=== PATIENT | female | born 1995 | race Caucasian/White ===

== ENCOUNTER 2017-11-07 23:59 | Outpatient (CLI) | payer OTHER ==
[2017-11-14 21:37] VITALS: BP 128/66
== END 2017-11-08 01:52 | disposition home or self-care (01) ==
LOC: TRG 23:59
PROVIDERS: ATTEND Obstetrics & Gynecology
DX: O62.9 Abnormality of forces of labor, unspecified (principal); Z3A.38 38 weeks gestation of pregnancy

== ENCOUNTER 2017-11-13 04:42 | Inpatient (IN) | payer OTHER ==
[2017-11-13] MEDS ORDERED: LACTATED RINGERS 1,000 ML ONE (09:27)
--- NOTE | 2017-11-13 11:33 | History and Physical Report ---
History of Present Illness Date of examination: 11/13/17 Date of admission: 11/13/17 Chief complaint: 39 weeks with contractions History of present illness: Patient is a 22 year old , LMP , EDC 11/21/17 at 39 weeks and 2 days gestation who presented to the labor floor complaining of contractions which started at about 5 AM today. She denies any fluid leakage or bleeding. She reports good movement. She is GDM and takes glyburide 2.5 mg daily. Past History Past Medical History: other (Gest diabetes) [employer] History: other (arcuate uterus) Social history: no significant social history - Obstetrical History : 1 Medications and Allergies Allergies Allergy/AdvReac Type Severity Reaction Status Date / Time No Known Allergies Allergy Verified 11/08/17 01:48 - Vital Signs Vital signs: Vital Signs Pulse BP 76 111/68 11/13/17 05:01 11/13/17 05:01 Temp Pulse Resp BP Pulse Ox 97.7 F 76 18 111/68 11/13/17 06:25 11/13/17 05:01 11/13/17 06:25 11/13/17 05:01 - Physical Exam Cardiovascular: Normal S1, Normal S2 Lungs: Positive: Clear to auscultation Vulva: both: normal Uterus: Positive: enlarged Deep Tendon Reflex Grade: Normal +2 - Obstetrical FHR: category 1 Uterine Contraction Monitor Mode: External Cervical Dilatation: 3 Cervical Effacement Percentage: 90 station: -1 Uterine Contraction Pattern: Regular Uterine Contraction Intensity: Moderate Results All other labs normal. Assessment and Plan - Patient Problems (1) 39 weeks gestation of Current Visit: Yes Status: Acute (2) Gestational diabetes Current Visit: Yes Status: Acute Plan to address problem: Glucose monitoring intrapartum. (3) Active labor Current Visit: Yes Status: Acute Plan to address problem: Admit to labor floor. Routine admitting labs. IV fluid. and toco monitoring. FS every 4 hrs intrapartum. Anticipate . (4) Arcuate uterus Current Visit: Yes Status: Acute (5) Anemia Current Visit: Yes Status: Acute Qualifiers: Anemia type: iron deficiency
[2017-11-13] MEDS: LACTATED RINGERS 1,000 ML IV SCH ×2 (12:53→20:09)
[2017-11-13 13:18] LABS: Hematocrit 37.1 % (30.3-42.9); Hemoglobin 12.4 gm/dl (10.1-14.3); Mean Corpuscular HGB Conc 33 % (30-34); Mean Corpuscular Hemoglobin 29 pg (28-32); Mean Corpuscular Volume 88 fl (79-97); Platelet Count 207 K/mm3 (140-440); Red Blood Count 4.23 M/mm3 (3.65-5.03); Red Cell Distribution Width 13.7 % (13.2-15.2); White Blood Count 11.9 K/mm3 (4.5-11.0)
[2017-11-13] MEDS ORDERED: NUBAIN IV ONE (22:25)
--- NOTE | 2017-11-13 22:29 | Progress Note ---
Assessment and Plan - Patient Problems (1) 39 weeks gestation of Current Visit: Yes Status: Acute (2) Gestational diabetes Current Visit: Yes Status: Acute Plan to address problem: Glucose monitoring intrapartum. (3) Active labor Current Visit: Yes Status: Acute Plan to address problem: and toco monitoring. FS every 4 hrs intrapartum. Anticipate . (4) Arcuate uterus Current Visit: Yes Status: Acute (5) Anemia Current Visit: Yes Status: Acute Qualifiers: Anemia type: iron deficiency Subjective - Subjective Date of service: 11/13/17 Principal diagnosis: Active labor Interval history: Patient is a 22 year old , LMP , EDC 11/21/17 at 39 weeks and 2 days gestation who presented to the labor floor complaining of contractions which started at about 5 AM today. She denies any fluid leakage or bleeding. She reports good movement. She is GDM and takes glyburide 2.5 mg daily. FHT has beeb CAT 1, contractions every 3-4 mins. Glucose has been less than 100. Objective - Vital Signs Vital Signs: Vital Signs - 12hr 11/13/17 11/13/17 11/13/17 11:49 11:54 11:59 Temperature Pulse Rate 74 68 75 Respiratory Rate Blood Pressure Blood Pressure [Left] O2 Sat by Pulse 98 98 99 Oximetry 11/13/17 11/13/17 11/13/17 12:04 12:09 12:14 Temperature Pulse Rate 72 81 71 Respiratory Rate Blood Pressure Blood Pressure [Left] O2 Sat by Pulse 98 97 97 Oximetry 11/13/17 11/13/17 11/13/17 12:19 12:24 12:29 Temperature Pulse Rate 77 79 71 Respiratory Rate Blood Pressure Blood Pressure [Left] O2 Sat by Pulse 97 96 97 Oximetry 11/13/17 11/13/17 11/13/17 12:34 12:39 12:44 Temperature Pulse Rate 79 83 91 H Respiratory Rate Blood Pressure Blood Pressure [Left] O2 Sat by Pulse 97 97 97 Oximetry 11/13/17 11/13/17 11/13/17 12:49 12:54 12:59 Temperature Pulse Rate 87 84 76 Respiratory Rate Blood Pressure Blood Pressure [Left] O2 Sat by Pulse 98 97 97 Oximetry 11/13/17 11/13/17 11/13/17 13:02 13:04 13:09 Temperature Pulse Rate 79 74 81 Respiratory Rate Blood Pressure Blood Pressure [Left] O2 Sat by Pulse 94 96 96 Oximetry 11/13/17 11/13/17 11/13/17 13:14 13:19 13:24 Temperature Pulse Rate 64 70 74 Respiratory Rate Blood Pressure Blood Pressure [Left] O2 Sat by Pulse 98 98 98 Oximetry 11/13/17 11/13/17 11/13/17 13:29 13:34 13:39 Temperature Pulse Rate 80 80 78 Respiratory Rate Blood Pressure Blood Pressure [Left] O2 Sat by Pulse 97 97 98 Oximetry 11/13/17 11/13/17 11/13/17 13:44 13:49 13:54 Temperature Pulse Rate 76 73 77 Respiratory Rate Blood Pressure Blood Pressure [Left] O2 Sat by Pulse 97 99 98 Oximetry 11/13/17 11/13/17 11/13/17 13:59 14:04 14:09 Temperature Pulse Rate 69 74 72 Respiratory Rate Blood Pressure Blood Pressure [Left] O2 Sat by Pulse 97 99 98 Oximetry 11/13/17 11/13/17 11/13/17 14:14 14:19 14:24 Temperature Pulse Rate 79 74 77 Respiratory Rate Blood Pressure Blood Pressure [Left] O2 Sat by Pulse 98 98 100 Oximetry 11/13/17 11/13/17 11/13/17 14:29 14:34 14:39 Temperature Pulse Rate 75 67 78 Respiratory Rate Blood Pressure Blood Pressure [Left] O2 Sat by Pulse 98 89 98 Oximetry 11/13/17 11/13/17 11/13/17 14:44 14:49 14:54 Temperature Pulse Rate 76 82 76 Respiratory Rate Blood Pressure Blood Pressure [Left] O2 Sat by Pulse 98 98 99 Oximetry 11/13/17 11/13/17 11/13/17 14:58 14:59 15:04 Temperature Pulse Rate 74 79 84 Respiratory Rate Blood Pressure Blood Pressure [Left] O2 Sat by Pulse 92 98 98 Oximetry 11/13/17 11/13/17 11/13/17 15:09 15:14 15:19 Temperature Pulse Rate 73 68 80 Respiratory Rate Blood Pressure Blood Pressure [Left] O2 Sat by Pulse 99 98 98 Oximetry 11/13/17 11/13/17 11/13/17 15:24 15:29 19:11 Temperature Pulse Rate 66 68 71 Respiratory Rate Blood Pressure Blood Pressure [Left] O2 Sat by Pulse 99 99 100 Oximetry 11/13/17 11/13/17 11/13/17 19:16 19:25 19:29 Temperature 97.8 F Pulse Rate 83 70 68 Respiratory 18 Rate Blood Pressure Blood Pressure 113/71 [Left] O2 Sat by Pulse 100 100 99 Oximetry 11/13/17 11/13/17 11/13/17 19:31 19:34 19:39 Temperature Pulse Rate 75 77 85 Respiratory Rate Blood Pressure 113/71 Blood Pressure [Left] O2 Sat by Pulse 99 98 Oximetry 11/13/17 11/13/17 11/13/17 19:44 19:49 19:54 Temperature Pulse Rate 76 77 80 Respiratory Rate Blood Pressure Blood Pressure [Left] O2 Sat by Pulse 98 98 98 Oximetry 11/13/17 11/13/17 11/13/17 19:59 20:04 20:09 Temperature Pulse Rate 100 H 79 76 Respiratory Rate Blood Pressure Blood Pressure [Left] O2 Sat by Pulse 98 98 98 Oximetry 11/13/17 11/13/17 11/13/17 20:14 20:19 20:24 Temperature Pulse Rate 71 79 82 Respiratory Rate Blood Pressure Blood Pressure [Left] O2 Sat by Pulse 97 98 98 Oximetry 11/13/17 11/13/17 11/13/17 20:29 20:32 20:34 Temperature Pulse Rate 82 80 79 Respiratory Rate Blood Pressure 106/60 Blood Pressure [Left] O2 Sat by Pulse 98 98 Oximetry 11/13/17 11/13/17 11/13/17 20:39 20:44 20:49 Temperature Pulse Rate 80 83 82 Respiratory Rate Blood Pressure Blood Pressure [Left] O2 Sat by Pulse 97 98 97 Oximetry 11/13/17 11/13/17 11/13/17 20:54 20:59 21:04 Temperature Pulse Rate 79 96 H 80 Respiratory Rate Blood Pressure Blood Pressure [Left] O2 Sat by Pulse 99 98 98 Oximetry 11/13/17 11/13/17 11/13/17 21:09 21:18 21:23 Temperature Pulse Rate 86 92 H 91 H Respiratory Rate Blood Pressure Blood Pressure [Left] O2 Sat by Pulse 98 99 99 Oximetry 11/13/17 11/13/17 11/13/17 21:27 21:28 21:31 Temperature Pulse Rate 74 71 68 Respiratory Rate Blood Pressure 117/75 Blood Pressure [Left] O2 Sat by Pulse 88 100 Oximetry 11/13/17 11/13/17 11/13/17 21:33 21:38 21:43 Temperature Pulse Rate 83 85 94 H Respiratory Rate Blood Pressure Blood Pressure [Left] O2 Sat by Pulse 99 99 98 Oximetry 11/13/17 11/13/17 11/13/17 21:48 21:53 21:58 Temperature Pulse Rate 79 72 73 Respiratory Rate Blood Pressure Blood Pressure [Left] O2 Sat by Pulse 98 98 98 Oximetry 11/13/17 11/13/17 11/13/17 22:03 22:08 22:13 Temperature Pulse Rate 71 86 83 Respiratory Rate Blood Pressure Blood Pressure [Left] O2 Sat by Pulse 98 98 98 Oximetry 11/13/17 11/13/17 11/13/17 22:18 22:23 22:28 Temperature Pulse Rate 80 77 85 Respiratory Rate Blood Pressure Blood Pressure [Left] O2 Sat by Pulse 98 98 99 Oximetry - Exam Cardiovascular: Normal S1, Normal S2 Lungs: Clear to auscultation Vulva: both: normal FHR: category 1 Uterine Contraction Monitor Mode: External Cervical Dilatation: 4 Cervical Effacement Percentage: 90 station: -1 Uterine Contraction Pattern: Irregular Deep Tendon Reflex Grade: Normal +2 - Labs Labs: Abnormal Labs 11/13/17 11/13/17 12:56 20:57 WBC 11.9 H POC Glucose 58 L Laboratory Results - last 24 hr 11/13/17 11/13/17 11/13/17 12:49 12:56 12:56 WBC 11.9 H RBC 4.23 Hgb 12.4 Hct 37.1 MCV 88 MCH 29 MCHC 33 RDW 13.7 Plt Count 207 POC Glucose 74 Blood Type O POSITIVE Antibody Screen Negative 11/13/17 20:57 WBC RBC Hgb Hct MCV MCH MCHC RDW Plt Count POC Glucose 58 L Blood Type Antibody Screen
--- NOTE | 2017-11-14 05:43 | Progress Note ---
Assessment and Plan - Patient Problems (1) 39 weeks gestation of Current Visit: Yes Status: Acute (2) Gestational diabetes Current Visit: Yes Status: Acute Plan to address problem: Glucose monitoring intrapartum. (3) Active labor Current Visit: Yes Status: Acute Plan to address problem: and toco monitoring. FS every 4 hrs intrapartum. Anticipate . (4) Arcuate uterus Current Visit: Yes Status: Acute (5) Anemia Current Visit: Yes Status: Acute Qualifiers: Anemia type: iron deficiency Subjective - Subjective Date of service: 11/14/17 Principal diagnosis: Active labor Interval history: Patient is a 22 year old , LMP , EDC 11/21/17 at 39 weeks and 3 days gestation who presented to the labor floor complaining of contractions which started at about 5 AM yesterday. She denies any fluid leakage or bleeding. She reports good movement. She is GDM and takes glyburide 2.5 mg daily. FHT has been CAT 1, contractions every 3-4 mins. Glucose is 82 now. Exam: cervix: 4 cm/90-100%/-1. Objective - Vital Signs Vital Signs: Vital Signs - 12hr 11/13/17 11/13/17 11/13/17 19:11 19:16 19:25 Temperature 97.8 F Pulse Rate 71 83 70 Respiratory 18 Rate Blood Pressure Blood Pressure 113/71 [Left] O2 Sat by Pulse 100 100 100 Oximetry 11/13/17 11/13/17 11/13/17 19:29 19:31 19:34 Temperature Pulse Rate 68 75 77 Respiratory Rate Blood Pressure 113/71 Blood Pressure [Left] O2 Sat by Pulse 99 99 Oximetry 11/13/17 11/13/17 11/13/17 19:39 19:44 19:49 Temperature Pulse Rate 85 76 77 Respiratory Rate Blood Pressure Blood Pressure [Left] O2 Sat by Pulse 98 98 98 Oximetry 11/13/17 11/13/17 11/13/17 19:54 19:59 20:04 Temperature Pulse Rate 80 100 H 79 Respiratory Rate Blood Pressure Blood Pressure [Left] O2 Sat by Pulse 98 98 98 Oximetry 11/13/17 11/13/17 11/13/17 20:09 20:14 20:19 Temperature Pulse Rate 76 71 79 Respiratory Rate Blood Pressure Blood Pressure [Left] O2 Sat by Pulse 98 97 98 Oximetry 11/13/17 11/13/17 11/13/17 20:24 20:29 20:32 Temperature Pulse Rate 82 82 80 Respiratory Rate Blood Pressure 106/60 Blood Pressure [Left] O2 Sat by Pulse 98 98 Oximetry 11/13/17 11/13/17 11/13/17 20:34 20:39 20:44 Temperature Pulse Rate 79 80 83 Respiratory Rate Blood Pressure Blood Pressure [Left] O2 Sat by Pulse 98 97 98 Oximetry 11/13/17 11/13/17 11/13/17 20:49 20:54 20:59 Temperature Pulse Rate 82 79 96 H Respiratory Rate Blood Pressure Blood Pressure [Left] O2 Sat by Pulse 97 99 98 Oximetry 11/13/17 11/13/17 11/13/17 21:04 21:09 21:18 Temperature Pulse Rate 80 86 92 H Respiratory Rate Blood Pressure Blood Pressure [Left] O2 Sat by Pulse 98 98 99 Oximetry 11/13/17 11/13/17 11/13/17 21:23 21:27 21:28 Temperature Pulse Rate 91 H 74 71 Respiratory Rate Blood Pressure Blood Pressure [Left] O2 Sat by Pulse 99 88 100 Oximetry 11/13/17 11/13/17 11/13/17 21:31 21:33 21:38 Temperature Pulse Rate 68 83 85 Respiratory Rate Blood Pressure 117/75 Blood Pressure [Left] O2 Sat by Pulse 99 99 Oximetry 11/13/17 11/13/17 11/13/17 21:43 21:48 21:53 Temperature Pulse Rate 94 H 79 72 Respiratory Rate Blood Pressure Blood Pressure [Left] O2 Sat by Pulse 98 98 98 Oximetry 11/13/17 11/13/17 11/13/17 21:58 22:03 22:08 Temperature Pulse Rate 73 71 86 Respiratory Rate Blood Pressure Blood Pressure [Left] O2 Sat by Pulse 98 98 98 Oximetry 11/13/17 11/13/17 11/13/17 22:13 22:18 22:23 Temperature Pulse Rate 83 80 77 Respiratory Rate Blood Pressure Blood Pressure [Left] O2 Sat by Pulse 98 98 98 Oximetry 11/13/17 11/13/17 11/13/17 22:28 22:31 22:33 Temperature Pulse Rate 85 79 76 Respiratory Rate Blood Pressure 114/72 Blood Pressure [Left] O2 Sat by Pulse 99 99 Oximetry 11/13/17 11/13/1717 22:38 22:43 22:48 Temperature Pulse Rate 83 73 78 Respiratory Rate Blood Pressure Blood Pressure [Left] O2 Sat by Pulse 98 99 98 Oximetry 11/13/17 11/13/17 11/13/17 22:53 22:58 23:03 Temperature Pulse Rate 76 90 83 Respiratory Rate Blood Pressure Blood Pressure [Left] O2 Sat by Pulse 99 98 98 Oximetry 11/13/17 11/13/17 11/13/17 23:08 23:13 23:18 Temperature Pulse Rate 78 81 79 Respiratory Rate Blood Pressure Blood Pressure [Left] O2 Sat by Pulse 98 97 96 Oximetry 11/13/17 11/13/17 11/13/17 23:23 23:28 23:31 Temperature Pulse Rate 87 86 78 Respiratory Rate Blood Pressure 108/63 Blood Pressure [Left] O2 Sat by Pulse 97 97 Oximetry 11/13/17 11/13/17 11/13/17 23:33 23:38 23:43 Temperature Pulse Rate 75 88 86 Respiratory Rate Blood Pressure Blood Pressure [Left] O2 Sat by Pulse 98 97 96 Oximetry 11/13/17 11/13/17 11/13/17 23:48 23:53 23:58 Temperature Pulse Rate 87 87 79 Respiratory Rate Blood Pressure Blood Pressure [Left] O2 Sat by Pulse 97 97 97 Oximetry 11/14/17 11/14/17 11/14/17 00:03 00:08 00:13 Temperature Pulse Rate 84 81 85 Respiratory Rate Blood Pressure Blood Pressure [Left] O2 Sat by Pulse 97 98 97 Oximetry 11/14/17 11/14/17 11/14/17 00:18 00:23 00:28 Temperature Pulse Rate 80 80 80 Respiratory Rate Blood Pressure Blood Pressure [Left] O2 Sat by Pulse 97 97 97 Oximetry 11/14/17 11/14/17 11/14/17 00:32 00:33 00:38 Temperature Pulse Rate 81 88 79 Respiratory Rate Blood Pressure 115/65 Blood Pressure [Left] O2 Sat by Pulse 97 99 Oximetry 11/14/17 11/14/17 11/14/17 00:43 00:48 00:53 Temperature Pulse Rate 90 83 80 Respiratory Rate Blood Pressure Blood Pressure [Left] O2 Sat by Pulse 98 98 97 Oximetry 11/14/17 11/14/17 11/14/17 00:58 01:03 01:08 Temperature Pulse Rate 87 82 84 Respiratory Rate Blood Pressure Blood Pressure [Left] O2 Sat by Pulse 98 98 98 Oximetry 11/14/17 11/14/17 11/14/17 01:13 01:18 01:23 Temperature Pulse Rate 82 78 86 Respiratory Rate Blood Pressure Blood Pressure [Left] O2 Sat by Pulse 97 97 97 Oximetry 11/14/17 11/14/17 11/14/17 01:28 01:31 01:33 Temperature Pulse Rate 89 73 85 Respiratory Rate Blood Pressure 117/66 Blood Pressure [Left] O2 Sat by Pulse 97 98 Oximetry 11/14/17 11/14/17 11/14/17 01:38 01:43 01:48 Temperature Pulse Rate 80 89 76 Respiratory Rate Blood Pressure Blood Pressure [Left] O2 Sat by Pulse 97 96 98 Oximetry 11/14/17 11/14/17 11/14/17 01:53 01:58 02:03 Temperature Pulse Rate 95 H 81 84 Respiratory Rate Blood Pressure Blood Pressure [Left] O2 Sat by Pulse 98 98 97 Oximetry 11/14/17 11/14/17 11/14/17 02:08 02:13 02:18 Temperature Pulse Rate 90 90 88 Respiratory Rate Blood Pressure Blood Pressure [Left] O2 Sat by Pulse 98 97 98 Oximetry 11/14/17 11/14/17 11/14/17 02:23 02:28 02:31 Temperature Pulse Rate 84 85 87 Respiratory Rate Blood Pressure 118/61 Blood Pressure [Left] O2 Sat by Pulse 98 98 Oximetry 11/14/17 11/14/17 11/14/17 02:33 02:38 02:43 Temperature Pulse Rate 83 83 85 Respiratory Rate Blood Pressure Blood Pressure [Left] O2 Sat by Pulse 97 97 96 Oximetry 11/14/17 11/14/17 11/14/17 02:48 02:53 02:58 Temperature Pulse Rate 89 98 H 106 H Respiratory Rate Blood Pressure Blood Pressure [Left] O2 Sat by Pulse 98 98 97 Oximetry 11/14/17 11/14/17 11/14/17 03:03 03:08 03:13 Temperature Pulse Rate 89 82 80 Respiratory Rate Blood Pressure Blood Pressure [Left] O2 Sat by Pulse 97 97 98 Oximetry 11/14/17 11/14/17 11/14/17 03:18 03:23 03:28 Temperature Pulse Rate 82 82 69 Respiratory Rate Blood Pressure Blood Pressure [Left] O2 Sat by Pulse 97 98 99 Oximetry 11/14/17 11/14/17 11/14/17 03:31 03:33 03:38 Temperature Pulse Rate 72 81 96 H Respiratory Rate Blood Pressure 110/67 Blood Pressure [Left] O2 Sat by Pulse 98 98 Oximetry 11/14/17 11/14/17 11/14/17 03:43 03:48 03:53 Temperature Pulse Rate 72 86 100 H Respiratory Rate Blood Pressure Blood Pressure [Left] O2 Sat by Pulse 98 98 98 Oximetry 11/14/17 11/14/17 11/14/17 03:58 04:03 04:08 Temperature Pulse Rate 91 H 91 H 80 Respiratory Rate Blood Pressure Blood Pressure [Left] O2 Sat by Pulse 99 100 99 Oximetry 11/14/17 11/14/17 11/14/17 04:13 04:18 04:23 Temperature Pulse Rate 74 80 84 Respiratory Rate Blood Pressure Blood Pressure [Left] O2 Sat by Pulse 100 98 98 Oximetry 11/14/17 11/14/17 11/14/17 04:28 04:33 04:38 Temperature Pulse Rate 75 89 92 H Respiratory Rate Blood Pressure 110/58 Blood Pressure [Left] O2 Sat by Pulse 98 98 97 Oximetry 11/14/17 11/14/17 11/14/17 04:43 04:48 04:53 Temperature Pulse Rate 74 70 65 Respiratory Rate Blood Pressure Blood Pressure [Left] O2 Sat by Pulse 99 98 97 Oximetry 11/14/17 11/14/17 11/14/17 05:04 05:09 05:14 Temperature Pulse Rate 76 70 69 Respiratory Rate Blood Pressure Blood Pressure [Left] O2 Sat by Pulse 96 95 97 Oximetry 11/14/17 11/14/17 11/14/17 05:19 05:24 05:29 Temperature Pulse Rate 67 75 70 Respiratory Rate Blood Pressure Blood Pressure [Left] O2 Sat by Pulse 97 98 97 Oximetry 11/14/17 11/14/17 11/14/17 05:32 05:34 05:39 Temperature Pulse Rate 62 65 66 Respiratory Rate Blood Pressure 104/61 Blood Pressure [Left] O2 Sat by Pulse 97 98 Oximetry - Exam Cardiovascular: Normal S1, Normal S2 Lungs: Clear to auscultation Vulva: both: normal FHR: category 1 Uterine Contraction Monitor Mode: External Cervical Dilatation: 4 Cervical Effacement Percentage: 90 station: -1 Uterine Contraction Pattern: Irregular Deep Tendon Reflex Grade: Normal +2 - Labs Labs: Abnormal Labs 11/13/17 11/13/17 12:56 20:57 WBC 11.9 H POC Glucose 58 L Laboratory Results - last 24 hr 11/13/17 11/13/17 11/13/17 12:49 12:56 12:56 WBC 11.9 H RBC 4.23 Hgb 12.4 Hct 37.1 MCV 88 MCH 29 MCHC 33 RDW 13.7 Plt Count 207 POC Glucose 74 Blood Type O POSITIVE Antibody Screen Negative 11/13/17 11/13/17 11/14/17 20:57 23:30 05:08 WBC RBC Hgb Hct MCV MCH MCHC RDW Plt Count POC Glucose 58 L 96 82 Blood Type Antibody Screen
[2017-11-14] MEDS: STADOL IV PRN ×2 (05:51→09:48)
--- NOTE | 2017-11-14 09:38 | Event Note ---
Date: 11/14/17 S: Feeling a few contractions O: /-1, Arom clear fluid, CAT I tracing, BS WNL A: Active labor P : Epidural Expect
[2017-11-14] MEDS ORDERED: ePHEDrine SULFATE ONE (10:07)
[2017-11-14] MEDS: LACTATED RINGERS 1,000 ML IV SCH ×3 (10:14→19:22)
--- NOTE | 2017-11-14 10:49 | Anesthesia Consultation ---
Anesthesia Consult and Med Hx Date of service: 11/14/17 - Airway Anesthetic Teeth Evaluation: Good ROM Head & Neck: Adequate Mental/Hyoid Distance: Adequate Mallampati Class: Class II Intubation Access Assessment: Probably Good - Pre-Operative Health Status ASA Pre-Surgery Classification: ASA2 Proposed Anesthetic Plan: Epidural, Spinal - Pulmonary Hx Asthma: No - Cardiovascular System Hx Hypertension: No - Central Nervous System Hx Seizures: No Hx Psychiatric Problems: No - Endocrine Hx Renal Disease: No Hx Hypothyroidism: No Hx Hyperthyroidism: No - Hematic Hx Anemia: No Hx Sickle Cell Disease: No - Other Systems Hx Alcohol Use: No
[2017-11-14] MEDS ORDERED: NARCAN 2 MG/2 ML IV PRN (11:30)
[2017-11-14] MEDS ORDERED: ePHEDrine SULFATE IV PRN (11:30)
[2017-11-14] MEDS: fentaNYL-BUPIV 2 MCG/ML-0.125% 200 MCG/100 ML BAG EPIDURAL SCH ×2 (11:31→18:59)
[2017-11-14] MEDS ORDERED: Fluarix Quad 2017-2018(36 MOS+ IM ONE (12:00)
--- NOTE | 2017-11-14 14:01 | Progress Note ---
Assessment and Plan A: 22yo G 1 P 0 0 0 0 @ 39 weeks 2 days Active Labor GDM GBS negative P: Continue routine labor orders Continue accuchecks q4hrs intrapartum Start oxytocin for labor augmentation Anticipate vaginal delivery Subjective - Subjective Date of service: 11/14/17 Principal diagnosis: Active labor Patient reports: movement normal, no contractions (epidural in place) Objective - Vital Signs Vital Signs: Vital Signs - 12hr 11/14/17 11/14/17 11/14/17 01:58 02:03 02:08 Temperature Pulse Rate 81 84 90 Respiratory Rate Blood Pressure Blood Pressure [Left] O2 Sat by Pulse 98 97 98 Oximetry 11/14/17 11/14/17 11/14/17 02:13 02:18 02:23 Temperature Pulse Rate 90 88 84 Respiratory Rate Blood Pressure Blood Pressure [Left] O2 Sat by Pulse 97 98 98 Oximetry 11/14/17 11/14/17 11/14/17 02:28 02:31 02:33 Temperature Pulse Rate 85 87 83 Respiratory Rate Blood Pressure 118/61 Blood Pressure [Left] O2 Sat by Pulse 98 97 Oximetry 11/14/17 11/14/17 11/14/17 02:38 02:43 02:48 Temperature Pulse Rate 83 85 89 Respiratory Rate Blood Pressure Blood Pressure [Left] O2 Sat by Pulse 97 96 98 Oximetry 11/14/17 11/14/17 11/14/17 02:53 02:58 03:03 Temperature Pulse Rate 98 H 106 H 89 Respiratory Rate Blood Pressure Blood Pressure [Left] O2 Sat by Pulse 98 97 97 Oximetry 11/14/17 11/14/17 11/14/17 03:08 03:13 03:18 Temperature Pulse Rate 82 80 82 Respiratory Rate Blood Pressure Blood Pressure [Left] O2 Sat by Pulse 97 98 97 Oximetry 11/14/17 11/14/17 11/14/17 03:23 03:28 03:31 Temperature Pulse Rate 82 69 72 Respiratory Rate Blood Pressure 110/67 Blood Pressure [Left] O2 Sat by Pulse 98 99 Oximetry 11/14/17 11/14/17 11/14/17 03:33 03:38 03:43 Temperature Pulse Rate 81 96 H 72 Respiratory Rate Blood Pressure Blood Pressure [Left] O2 Sat by Pulse 98 98 98 Oximetry 11/14/17 11/14/17 11/14/17 03:48 03:53 03:58 Temperature Pulse Rate 86 100 H 91 H Respiratory Rate Blood Pressure Blood Pressure [Left] O2 Sat by Pulse 98 98 99 Oximetry 11/14/17 11/14/17 11/14/17 04:03 04:08 04:13 Temperature Pulse Rate 91 H 80 74 Respiratory Rate Blood Pressure Blood Pressure [Left] O2 Sat by Pulse 100 99 100 Oximetry 11/14/17 11/14/17 11/14/17 04:18 04:23 04:28 Temperature Pulse Rate 80 84 75 Respiratory Rate Blood Pressure Blood Pressure [Left] O2 Sat by Pulse 98 98 98 Oximetry 11/14/17 11/14/17 11/14/17 04:33 04:38 04:43 Temperature Pulse Rate 89 92 H 74 Respiratory Rate Blood Pressure 110/58 Blood Pressure [Left] O2 Sat by Pulse 98 97 99 Oximetry 11/14/17 11/14/17 11/14/17 04:48 04:53 05:04 Temperature Pulse Rate 70 65 76 Respiratory Rate Blood Pressure Blood Pressure [Left] O2 Sat by Pulse 98 97 96 Oximetry 11/14/17 11/14/17 11/14/17 05:09 05:14 05:19 Temperature Pulse Rate 70 69 67 Respiratory Rate Blood Pressure Blood Pressure [Left] O2 Sat by Pulse 95 97 97 Oximetry 11/14/17 11/14/17 11/14/17 05:24 05:29 05:32 Temperature Pulse Rate 75 70 62 Respiratory Rate Blood Pressure 104/61 Blood Pressure [Left] O2 Sat by Pulse 98 97 Oximetry 11/14/17 11/14/17 11/14/17 05:34 05:39 05:44 Temperature Pulse Rate 65 66 68 Respiratory Rate Blood Pressure Blood Pressure [Left] O2 Sat by Pulse 97 98 98 Oximetry 11/14/17 11/14/17 11/14/17 05:49 05:51 05:53 Temperature Pulse Rate 68 79 Respiratory 18 Rate Blood Pressure Blood Pressure [Left] O2 Sat by Pulse 97 94 Oximetry 11/14/17 11/14/17 11/14/17 05:54 05:59 06:04 Temperature Pulse Rate 80 82 79 Respiratory Rate Blood Pressure Blood Pressure [Left] O2 Sat by Pulse 95 95 96 Oximetry 11/14/17 11/14/17 11/14/17 06:09 06:14 06:19 Temperature Pulse Rate 82 88 94 H Respiratory Rate Blood Pressure Blood Pressure [Left] O2 Sat by Pulse 95 96 96 Oximetry 11/14/17 11/14/17 11/14/17 06:22 06:25 06:29 Temperature Pulse Rate 82 95 H 96 H Respiratory Rate Blood Pressure Blood Pressure [Left] O2 Sat by Pulse 94 96 96 Oximetry 11/14/17 11/14/17 11/14/17 06:32 06:34 06:39 Temperature Pulse Rate 78 91 H 90 Respiratory Rate Blood Pressure 110/62 Blood Pressure [Left] O2 Sat by Pulse 94 96 96 Oximetry 11/14/17 11/14/17 11/14/17 06:44 06:49 06:50 Temperature Pulse Rate 80 81 79 Respiratory Rate Blood Pressure Blood Pressure [Left] O2 Sat by Pulse 95 94 95 Oximetry 11/14/17 11/14/17 11/14/17 06:55 07:00 07:05 Temperature Pulse Rate 76 87 104 H Respiratory Rate Blood Pressure Blood Pressure [Left] O2 Sat by Pulse 94 97 97 Oximetry 11/14/17 11/14/17 11/14/17 07:08 07:09 07:13 Temperature Pulse Rate 79 84 81 Respiratory Rate Blood Pressure Blood Pressure [Left] O2 Sat by Pulse 94 97 94 Oximetry 11/14/17 11/14/17 11/14/17 07:14 07:20 07:25 Temperature Pulse Rate 72 82 77 Respiratory Rate Blood Pressure Blood Pressure [Left] O2 Sat by Pulse 97 97 97 Oximetry 11/14/17 11/14/17 11/14/17 07:28 07:30 07:32 Temperature 97.3 F L Pulse Rate 73 74 74 Respiratory 18 Rate Blood Pressure 101/59 Blood Pressure 101/59 [Left] O2 Sat by Pulse 98 97 Oximetry 11/14/17 11/14/17 11/14/17 07:35 07:39 07:45 Temperature Pulse Rate 75 82 73 Respiratory Rate Blood Pressure Blood Pressure [Left] O2 Sat by Pulse 97 98 99 Oximetry 11/14/17 11/14/17 11/14/17 07:50 07:55 08:00 Temperature Pulse Rate 67 73 79 Respiratory Rate Blood Pressure Blood Pressure [Left] O2 Sat by Pulse 99 98 98 Oximetry 11/14/17 11/14/17 11/14/17 08:05 08:10 08:14 Temperature Pulse Rate 73 75 75 Respiratory Rate Blood Pressure Blood Pressure [Left] O2 Sat by Pulse 97 97 97 Oximetry 11/14/17 11/14/17 11/14/17 08:20 08:24 08:30 Temperature Pulse Rate 84 80 84 Respiratory Rate Blood Pressure Blood Pressure [Left] O2 Sat by Pulse 97 98 97 Oximetry 11/14/17 11/14/17 11/14/17 08:32 08:35 08:39 Temperature Pulse Rate 69 81 97 H Respiratory Rate Blood Pressure 108/66 Blood Pressure [Left] O2 Sat by Pulse 98 98 Oximetry 11/14/17 11/14/17 11/14/17 08:45 08:50 08:55 Temperature Pulse Rate 77 78 87 Respiratory Rate Blood Pressure Blood Pressure [Left] O2 Sat by Pulse 99 97 97 Oximetry 11/14/17 11/14/17 11/14/17 09:00 09:05 09:06 Temperature Pulse Rate 71 73 92 H Respiratory Rate Blood Pressure Blood Pressure [Left] O2 Sat by Pulse 97 99 93 Oximetry 11/14/17 11/14/17 11/14/17 09:10 09:15 09:20 Temperature Pulse Rate 98 H 90 81 Respiratory Rate Blood Pressure Blood Pressure [Left] O2 Sat by Pulse 99 98 98 Oximetry 11/14/17 11/14/17 11/14/17 09:25 09:30 09:46 Temperature Pulse Rate 82 91 H 71 Respiratory Rate Blood Pressure Blood Pressure [Left] O2 Sat by Pulse 98 98 100 Oximetry 11/14/17 11/14/17 11/14/17 09:48 09:52 09:57 Temperature Pulse Rate 72 75 Respiratory 18 Rate Blood Pressure Blood Pressure [Left] O2 Sat by Pulse 100 98 Oximetry 11/14/17 11/14/17 11/14/17 10:02 10:06 10:11 Temperature Pulse Rate 78 93 H 83 Respiratory Rate Blood Pressure Blood Pressure [Left] O2 Sat by Pulse 98 97 98 Oximetry 11/14/17 11/14/17 11/14/17 10:16 10:22 10:27 Temperature Pulse Rate 85 71 97 H Respiratory Rate Blood Pressure Blood Pressure [Left] O2 Sat by Pulse 98 96 98 Oximetry 11/14/17 11/14/17 11/14/17 10:31 10:35 10:37 Temperature Pulse Rate 74 75 71 Respiratory Rate Blood Pressure 127/74 Blood Pressure [Left] O2 Sat by Pulse 97 91 97 Oximetry 11/14/17 11/14/17 11/14/17 10:41 10:46 10:49 Temperature Pulse Rate 89 77 89 Respiratory Rate Blood Pressure Blood Pressure [Left] O2 Sat by Pulse 95 98 93 Oximetry 11/14/17 11/14/17 11/14/17 10:56 10:57 10:59 Temperature 97.6 F Pulse Rate 94 H 84 Respiratory 18 Rate Blood Pressure 135/77 Blood Pressure 135/77 [Left] O2 Sat by Pulse 92 99 99 Oximetry 11/14/17 11/14/17 11/14/17 11:02 11:05 11:07 Temperature Pulse Rate 98 H 85 90 Respiratory Rate Blood Pressure 125/65 Blood Pressure [Left] O2 Sat by Pulse 98 81 L 100 Oximetry 11/14/17 11/14/17 11/14/17 11:09 11:11 11:12 Temperature Pulse Rate 71 74 82 Respiratory Rate Blood Pressure 116/64 128/74 Blood Pressure [Left] O2 Sat by Pulse 100 Oximetry 11/14/17 11/14/17 11/14/17 11:13 11:15 11:17 Temperature Pulse Rate 78 70 90 Respiratory Rate Blood Pressure 125/73 130/82 127/68 Blood Pressure [Left] O2 Sat by Pulse 100 Oximetry 11/14/17 11/14/17 11/14/17 11:19 11:21 11:22 Temperature Pulse Rate 74 83 71 Respiratory Rate Blood Pressure 123/66 127/69 Blood Pressure [Left] O2 Sat by Pulse 99 Oximetry 11/14/17 11/14/17 11/14/17 11:23 11:27 11:32 Temperature Pulse Rate 75 69 74 Respiratory Rate Blood Pressure 124/68 Blood Pressure [Left] O2 Sat by Pulse 99 99 Oximetry 11/14/17 11/14/17 11/14/17 11:34 11:37 11:39 Temperature Pulse Rate 67 67 77 Respiratory Rate Blood Pressure 124/68 129/68 Blood Pressure [Left] O2 Sat by Pulse 100 Oximetry 11/14/17 11/14/17 11/14/17 11:42 11:45 11:47 Temperature Pulse Rate 82 69 73 Respiratory Rate Blood Pressure 110/53 Blood Pressure [Left] O2 Sat by Pulse 98 99 Oximetry 11/14/17 11/14/17 11/14/17 11:49 11:52 11:54 Temperature Pulse Rate 81 80 81 Respiratory Rate Blood Pressure 120/69 117/71 Blood Pressure [Left] O2 Sat by Pulse 99 Oximetry 11/14/17 11/14/17 11/14/17 11:57 11:59 12:02 Temperature Pulse Rate 82 85 90 Respiratory Rate Blood Pressure 126/72 Blood Pressure [Left] O2 Sat by Pulse 100 100 Oximetry 11/14/17 11/14/17 11/14/17 12:05 12:07 12:09 Temperature Pulse Rate 82 84 81 Respiratory Rate Blood Pressure 125/73 118/69 Blood Pressure [Left] O2 Sat by Pulse 100 Oximetry 11/14/17 11/14/17 11/14/17 12:10 12:12 12:15 Temperature Pulse Rate 100 H 94 H 84 Respiratory Rate Blood Pressure 123/75 Blood Pressure [Left] O2 Sat by Pulse 89 100 Oximetry 11/14/17 11/14/17 11/14/17 12:16 12:20 12:22 Temperature Pulse Rate 91 H 84 84 Respiratory Rate Blood Pressure 118/69 Blood Pressure [Left] O2 Sat by Pulse 100 100 Oximetry 11/14/17 11/14/17 11/14/17 12:25 12:27 12:29 Temperature Pulse Rate 83 84 92 H Respiratory Rate Blood Pressure 121/74 117/71 Blood Pressure [Left] O2 Sat by Pulse 100 Oximetry 11/14/17 11/14/17 11/14/17 12:31 12:34 12:37 Temperature Pulse Rate 89 84 93 H Respiratory Rate Blood Pressure 120/75 Blood Pressure [Left] O2 Sat by Pulse 99 100 Oximetry 11/14/17 11/14/17 11/14/17 12:39 12:42 12:44 Temperature Pulse Rate 94 H 88 88 Respiratory Rate Blood Pressure 125/75 117/70 Blood Pressure [Left] O2 Sat by Pulse 100 Oximetry 11/14/17 11/14/17 12:47 12:50 Temperature Pulse Rate 90 87 Respiratory Rate Blood Pressure 125/76 Blood Pressure [Left] O2 Sat by Pulse 100 Oximetry - Exam Cardiovascular: Regular rate, Normal S1, Normal S2 Lungs: Clear to auscultation Abdomen: Present: normal appearance, soft Vulva: both: normal FHR: category 1 FHR comments: baseline 135, moderate variability, +accels, no decels Uterine Contraction Monitor Mode: External Cervical Dilatation: 7 Cervical Effacement Percentage: 100 station: -2 Uterine Contraction Frequency (min): 2-5 Uterine Contraction Pattern: Regular Extremities: normal - Labs Labs: Abnormal Labs 11/13/17 11/13/17 12:56 20:57 WBC 11.9 H POC Glucose 58 L Laboratory Results - last 24 hr 11/13/17 11/13/17 11/13/17 12:56 12:56 20:57 POC Glucose 58 L RPR Nonreactive Blood Type O POSITIVE Antibody Screen Negative 11/13/17 11/14/17 11/14/17 23:30 05:08 09:23 POC Glucose 96 82 79 RPR Blood Type Antibody Screen 11/14/17 13:12 POC Glucose 76 RPR Blood Type Antibody Screen
[2017-11-14] MEDS: PITOCin/NS 30 UNIT/500ML 30 UNITS/500 ML BAG IV SCH ×2 (15:10→16:05)
[2017-11-14] MEDS ORDERED: PITOCin/NS 20 UNIT/1000ML DRIP 20,000 MILLIUNITS/1,000 ML BAG IV ONE (18:58)
--- NOTE | 2017-11-14 20:53 | Event Note ---
Date: 11/14/17 Patient with temp at 100.6 and tachycardia in the 180's. A: Chorioamnionitis. P: -Will start IV antibiotics now. -Continue pushing, anticipate
[2017-11-14] MEDS ORDERED: MINERAL OIL ONE (20:57)
[2017-11-14] MEDS ORDERED: POLYCILLIN/NS 2 GM/100 ML 2 GM/100 ML BAG IV SCH (21:00)
[2017-11-14] MEDS ORDERED: GARAMYCIN 300 MG in NACL 0.9% 100 ML IV SCH (21:00)
[2017-11-14] MEDS ORDERED: METHERGINE IM ONE (21:21)
--- NOTE | 2017-11-14 21:35 | Procedure Note ---
OB Delivery Note - Delivery Date of Delivery: 11/14/17 Surgeon: TREV CALDERON Estimated blood loss: 300cc - Vaginal Delivery presentation: vertex Delivery position: OA Intrapartum events: febrile- temp >100.3, extend. tachycardia, shoulder dystocia (relieved with suprapubic pressure, Jim positioning and rotational maneuver) Delivery augmentation: pitocin Delivery monitor: external FHT, external uterine Route of delivery: vacuum extraction Indicators for instrumentation: nonreassuring FHR tracing (prolonged sustained tachycardia and arrest of descent) Delivery placenta: spontaneous Delivery cord: 3 umbilical vessels Episiotomy: none Delivery laceration: 2nd degree, vaginal side wall (left vaginal sidewall) Delivery repair: vicryl Anesthesia: epidural Delivery comments: Vacuum-assisted vaginal delivery after sustained tachycardia, maternal exhaustion and arrest of descent. Shoulder dystocia encountered during delivery. delivered with use of Jim positioning, suprapubic pressure and rotational maneuvers. NICU present in the room, total duration of shoulder dystocia for ~ 1:30 min. - A at 1 minute: 8 at 5 minutes: 9 Gender: Female (time of delivery was 21:12, weight 7 lbs. 15 oz. or 3612 g)
[2017-11-14] MEDS ORDERED: MINERAL OIL PO PRN (21:37)
[2017-11-14] MEDS ORDERED: TUCKS PAD TP PRN (21:38)
[2017-11-14] MEDS ORDERED: DERMOPLAST TP PRN (21:38)
[2017-11-14] MEDS ORDERED: NORCO 5/325 PO PRN (21:38)
[2017-11-14] MEDS ORDERED: TYLENOL PO PRN (21:38)
[2017-11-14] MEDS ORDERED: DULCOLAX PR PRN (21:38)
[2017-11-14] MEDS ORDERED: LANSINOH TP PRN (21:38)
[2017-11-14] MEDS ORDERED: PHENERGAN PR PRN (21:38)
[2017-11-14] MEDS ORDERED: ZOFRAN IV PRN (21:38)
[2017-11-14] MEDS ORDERED: BENADRYL PO PRN (21:38)
[2017-11-14] MEDS ORDERED: MILK OF MAGNESIA PO PRN (21:38)
[2017-11-14] MEDS ORDERED: PHENERGAN PO PRN (21:38)
[2017-11-14] MEDS ORDERED: METHERGINE IM PRN (21:38)
[2017-11-14] MEDS ORDERED: D50W (25GM) Syringe IV PRN (21:40)
--- NOTE | 2017-11-14 21:42 | Event Note ---
Date: 11/14/17 S: Pt in semi-mitchell's position and pushing in progress with RN at bedside. O: SVE 10/100/-1 FHR baseline 180, minimal variability, no accels, variable decels Oxygen via NR mask @ 10 L/min Ctxs q2-3 mins Temp 99.5, 100.1, 100.6 Maternal HR 103, 107 500ml LR fluid bolus given Pitocin @ 4 mu/min Blood glucose 96 A: 22yo @ 39w2d Category II FHR Chorioamnionitis GDM P: Dr. Cherry notified of maternal fever and tachycardia and requested bedside evaluation. Verbal order given to start patient on Ampicillin and Gentamycin.
[2017-11-14] MEDS ORDERED: PITOCin/NS 20 UNIT/1000ML DRIP 20 UNITS/1,000 ML BAG IV SCH ×2 (22:00)
[2017-11-14] MEDS ORDERED: SODIUM CHLORIDE FLUSH SYRINGE 10 ML IV NR (22:00)
[2017-11-15] MEDS: FEOSOL PO SCH ×3 (00:18→22:55)
[2017-11-15] MEDS: COLACE PO SCH ×3 (00:18→22:55)
[2017-11-15] MEDS: SENOKOT S PO SCH ×2 (00:19→22:54)
[2017-11-15] MEDS: MOTRIN PO SCH ×4 (00:19→18:19)
[2017-11-15] MEDS: POLYCILLIN/NS 2 GM/100 ML 2 GM/100 ML BAG IV SCH ×3 (05:52→18:18)
[2017-11-15] MEDS ORDERED: BOOSTRIX IM ONE (06:00)
[2017-11-15] MEDS ORDERED: M-M-R II VACCINE SUB-Q ONE (06:00)
[2017-11-15] MEDS ORDERED: NACL 0.9% 1000 ML 1,000 ML IV SCH (06:00)
--- NOTE | 2017-11-15 09:16 | Progress Note ---
Assessment and Plan A: PPD #1 -stable P: Plan discharge for tomorrow Subjective - Subjective Date of service: 11/15/17 Principal diagnosis: S/P Patient reports: appetite normal [place]: doing well Objective - Vital Signs Latest vital signs: Vital Signs Temp Pulse Resp BP BP Pulse Ox 11/15/17 04:20 98.2 F 76 20 98/52 11/14/17 23:30 98.2 F 72 18 121/74 11/14/17 22:52 82 98 11/14/17 22:47 72 97 11/14/17 22:46 99.1 F 75 18 120/70 97 11/14/17 22:44 18 11/14/17 22:42 72 96 11/14/17 22:40 75 120/70 11/14/17 22:37 79 96 11/14/17 22:32 88 96 11/14/17 22:27 91 H 95 11/14/17 22:25 89 143/79 90 11/14/17 22:22 84 96 11/14/17 22:20 100.1 F H 82 18 144/79 97 11/14/17 22:17 80 96 11/14/17 22:12 85 96 11/14/17 22:10 86 144/79 11/14/17 22:07 91 H 96 11/14/17 22:02 109 H 95 11/14/17 22:01 86 94 11/14/17 21:57 89 97 11/14/17 21:55 95 H 140/73 94 11/14/17 21:52 92 H 97 11/14/17 21:47 80 L 11/14/17 20:40 100.6 F H 11/14/17 20:00 100.1 F H 107 H 18 119/76 99 11/14/17 19:22 99.5 F 103 H 18 132/77 99 11/14/17 17:51 100.2 F H 111 H 18 129/77 98 11/14/17 16:10 99.2 F 108 H 18 105/55 99 11/14/17 12:50 87 125/76 11/14/17 12:47 90 100 11/14/17 12:44 88 117/70 11/14/17 12:42 88 100 11/14/17 12:39 94 H 125/75 12/18/17 12:37 93 H 100 18/17 12:34 84 120/75 18/17 12:31 89 99 18/17 12:29 92 H 117/71 18/17 12:27 84 100 18/17 12:25 83 121/74 18/17 12:22 84 100 18/17 12:20 84 118/69 18/17 12:16 91 H 100 18/17 12:15 84 123/75 18/17 12:12 94 H 100 18/17 12:10 100 H 89 18/17 12:09 81 118/69 18/17 12:07 84 100 18/17 12:05 82 125/73 11/14/17 12:02 90 100 18/17 11:59 85 126/72 18/17 11:57 82 100 18/17 11:54 81 117/71 18/17 11:52 80 99 18/17 11:49 81 120/69 18/17 11:47 73 99 18/17 11:45 69 110/53 18/17 11:42 82 98 18/17 11:39 77 129/68 18/17 11:37 67 100 18/17 11:34 67 124/68 18/17 11:32 74 99 18/17 11:27 69 99 18/17 11:23 75 124/68 18/17 11:22 71 99 18/17 11:21 83 127/69 18/17 11:19 74 123/66 1218/17 11:17 90 127/68 100 18/17 11:15 70 130/82 1218/17 11:13 78 125/73 18/17 11:12 82 100 18/17 11:11 74 128/74 18/17 11:09 71 116/64 18/17 11:07 90 125/65 100 18/17 11:05 85 81 L 18/17 11:02 98 H 98 18/17 10:59 97.6 F 84 18 135/77 99 18/17 10:57 94 H 135/77 99 12/18/17 10:56 92 11/14/17 10:49 89 93 11/14/17 10:46 77 98 11/14/17 10:41 89 95 11/14/17 10:37 71 97 11/14/17 10:35 75 91 11/14/17 10:31 74 127/74 97 11/14/17 10:27 97 H 98 11/14/17 10:22 71 96 11/14/17 10:16 85 98 11/14/17 10:11 83 98 11/14/17 10:06 93 H 97 11/14/17 10:02 78 98 11/14/17 09:57 75 98 11/14/17 09:52 72 100 11/14/17 09:48 18 11/14/17 09:46 71 100 11/14/17 09:30 91 H 98 11/14/17 09:25 82 98 11/14/17 09:20 81 98 Intake and Output 11/14/17 11/15/17 11/15/17 22:59 06:59 14:59 Intake Total 1000.917 Output Total 800 500 Balance 200.917 -500 Intake: IV 1000.917 Lactated Ringers 1,000 ml 1000 @ 125 mls/hr IV DIRECT [facility] Rx#:[id number] PITOCin/NS 30 UNIT/500ML 0.917 30 units In 500 ml @ 1 MILLIUNITS/MIN 1 mls/hr IV TITR [facility] Rx#:[id number] Output: Urine 800 500 Void 800 500 Other: Total, Output Amount 800 500 Estimated Blood Loss 300 - Exam Breasts: Present: deferred, mass Lungs: Present: Clear to auscultation Abdomen: Present: soft Vulva: both: normal Uterus: Present: fundal height below umbilicus Extremities: Present: normal Deep Tendon Reflex Grade: Normal +2 - Labs Labs: Abnormal lab results 11/14/17 11/15/17 11/15/17 Range/Units 17:49 00:29 08:39 POC Glucose 66 L 134 H 150 H (70-105)
[2017-11-15 10:05] LABS: Hematocrit 34.8 % (30.3-42.9); Hemoglobin 11.8 gm/dl (10.1-14.3)
[2017-11-15] MEDS: PRENATAL VITAMIN PO SCH (12:01)
[2017-11-15] MEDS ORDERED: GARAMYCIN 300 MG in NACL 0.9% 100 ML IV SCH (22:00)
[2017-11-16] MEDS: MOTRIN PO SCH ×2 (00:27→06:18)
[2017-11-16] MEDS: POLYCILLIN/NS 2 GM/100 ML 2 GM/100 ML BAG IV SCH ×3 (00:29→06:47)
--- NOTE | 2017-11-16 10:44 | Progress Note ---
Assessment and Plan A: PP Day #2 Stable GDM A2 P: Follow Routine Orders Continue Diabetic Diet, Accuchecks, and Glyburide D/C home today RTO in 2 Weeks Subjective - Subjective Date of service: 11/16/17 Principal diagnosis: S/P Patient reports: appetite normal, voiding normally, pain well controlled, flatus , ambulating normally : doing well Objective - Vital Signs Latest vital signs: Vital Signs Temp Pulse Resp BP BP Pulse Ox 11/16/17 09:10 97.7 F 74 20 113/65 11/16/17 02:02 97.6 F 60 18 100/64 97 11/15/17 16:32 97.5 F L 70 18 104/62 11/15/17 12:00 97.7 F 69 18 107/50 Intake and Output 11/15/17 11/16/17 11/16/17 22:59 06:59 14:59 Intake Total 580 100 360 Balance 580 100 360 Intake: IV 100 100 POLYCILLIN/NS 2 GM/100 ML 100 100 2 gm In 100 ml @ 100 mls /hr IV Q6HR [facility] Rx#: [id number] Oral 480 360 Other: Total, Intake Amount 480 360 # Voids Void 1 1 - Exam Breasts: Present: normal Cardiovascular: Present: Regular rate Lungs: Present: Clear to auscultation Abdomen: Present: normal appearance, soft, normal bowel sounds Uterus: Present: normal, firm, fundal height below umbilicus Extremities: Present: normal - Labs Labs: Abnormal lab results 11/15/17 Range/Units 11:53 POC Glucose 142 H (70-105)
--- NOTE | 2017-11-16 10:45 | Discharge Summary ---
Providers - Providers Date of Admission: 11/13/17 04:43 Date of discharge: 11/16/17 Attending physician: PEREZ ALVAREZ MD Primary care physician: PEREZ ALVAREZ MD Hospitalization Reason for admission: active labor Delivery: Episiotomy: none Laceration: 2nd degree Other procedures: none complications: none Discharge diagnosis: IUP at term delivered [place] baby: female Condition at discharge: Good Disposition: DC-01 TO HOME OR SELFCARE Plan - Discharge Medications Prescriptions: HYDROcodone/APAP 5-325 [Braymer 5/325] 1 each PO Q6HR PRN #7 tablet PRN Reason: Pain Ibuprofen [Motrin 600 MG tab] 600 mg PO Q8H PRN #30 tablet PRN Reason: Pain Multivitamin with Iron [Multivitamins with Iron] 1 each PO DAILY #30 tablet - Provider Discharge Summary Activity: routine, no sex for 6 weeks, no heavy lifting 4 weeks, no strenuous exercise Diet: routine Instructions: routine Additional instructions: [] Smoking cessation referral if applicable(refer to patient education folder for contact #) [] Refer to [facility]'s [facility] Booklet Call your doctor immediately for: * Fever > 100.5 * Heavy vaginal bleeding ( >1 pad per hour) * Severe persistent headache * Shortness of breath * Reddened, hot, painful area to leg or breast * Drainage or odor from incision. * Keep incision clean and dry at all times and follow doctor's instructions regarding bathing/showering - Follow up plan Follow up: PEREZ ALVAREZ MD [Primary Care Provider] - 14 Days
[2017-11-16] MEDS: FEOSOL PO SCH ×2 (11:42→21:30)
[2017-11-16] MEDS: COLACE PO SCH ×2 (11:42→21:30)
[2017-11-16] MEDS: PRENATAL VITAMIN PO SCH (11:42)
[2017-11-16] MEDS: SENOKOT S PO SCH (22:35)
[2017-11-17] MEDS: MOTRIN PO SCH ×2 (00:15→05:59)
[2017-11-17] MEDS: COLACE PO SCH (10:22)
[2017-11-17] MEDS: FEOSOL PO SCH (10:22)
[2017-11-17] MEDS: PRENATAL VITAMIN PO SCH (10:22)
[2017-11-17] MEDS ORDERED: Fluarix Quad 2017-2018(36 MOS+ IM ONE (13:30)
[2017-11-17 14:41] VITALS: BP 118/98
== END 2017-11-17 15:00 | disposition home or self-care (01) | DRG 775 ==
LOC: TRG 04:42 → LD 04:43 → TRG 04:46 → OB 11-14 23:48
PROVIDERS: ADMIT Obstetrics & Gynecology; ATTEND Obstetrics & Gynecology
PROC: 10D07Z6 Extraction of Products of Conception, Vacuum, Via Natural or Artificial Opening (ICD-10-PCS; principal; 2017-11-14)
PROC: 0KQM0ZZ Repair Perineum Muscle, Open Approach (ICD-10-PCS; 2017-11-14)
PROC: 3E0234Z Introduction of Serum, Toxoid and Vaccine into Muscle, Percutaneous Approach (ICD-10-PCS; 2017-11-14)
PROC: 3E0R3BZ Introduction of Anesthetic Agent into Spinal Canal, Percutaneous Approach (ICD-10-PCS; 2017-11-14)
PROC: 00HU33Z Insertion of Infusion Device into Spinal Canal, Percutaneous Approach (ICD-10-PCS; 2017-11-14)
DX: O24.425 Gestational diabetes mellitus in childbirth, controlled by oral hypoglycemic drugs (principal); O41.1230 Chorioamnionitis, third trimester, not applicable or unspecified; O71.4 Obstetric high vaginal laceration alone; O99.02 Anemia complicating childbirth; D64.9 Anemia, unspecified; O99.89 Other specified diseases and conditions complicating pregnancy, childbirth and the puerperium; O66.0 Obstructed labor due to shoulder dystocia; O76 Abnormality in fetal heart rate and rhythm complicating labor and delivery; Z3A.39 39 weeks gestation of pregnancy; Z37.0 Single live birth; Z23 Encounter for immunization; Q51.810 Arcuate uterus; Z79.84 Long term (current) use of oral hypoglycemic drugs
CPT/HCPCS: 36415; 82962; 85014; 85018; 85027; 86592; 86850; 86900; 86901; 90471; 90686; 90715; 99211; G0008; G0463; J0290; J0595; J1580; J2210; J2300; J2590; J7030; J7120

== ENCOUNTER 2019-07-06 09:39 | Emergency (ER) | payer SELFPAY ==
--- NOTE | 2019-07-06 11:24 | Emergency Department Report ---
HPI - General Chief Complaint: Sore Throat Time Seen by Provider: 07/06/19 11:07 - HPI HPI: 24-year-old female presents to the emergency department with complaint of a two-week history of intermittent subjective fever, body aches, sore throat and productive cough with yellow sputum. The patient is currently about 3 months . She follows up with the [facility]. She has been taking some Tylenol for her symptoms with only transient relief. The cough is also intermittent but she says that she will have coughing fits when it does occur. No drooling. She is able to swallow both liquids and solids. She does not have a primary care physician. She last took Tylenol this morning at about 4 AM. This patient does not speak French well but Padmini was at bedside due to translation for both the history and physical, as well as disposition. ED Past Medical Hx - Past Medical History Previous Medical History?: No Hx Hypertension: No Hx Diabetes: Yes (gestational) Hx Deep Vein Thrombosis: No Hx Renal Disease: No Hx Sickle Cell Disease: No Hx Seizures: No Hx Asthma: No Hx HIV: No - Surgical History Past Surgical History?: No - Social History Smoking Status: Never Smoker Substance Use Type: None - Medications Home Medications: Home Medications Medication Instructions Recorded Confirmed Last Taken Type HYDROcodone/APAP 5-325 [[place] 1 each PO Q6HR PRN #7 tablet 11/14/17 Unknown Rx 5/325] Ibuprofen [Motrin 600 MG tab] 600 mg PO Q8H PRN #30 tablet 11/14/17 Unknown Rx Multivitamin with Iron 1 each PO DAILY #30 tablet 11/14/17 Unknown Rx [Multivitamins with Iron] ED Review of Systems ROS: Stated complaint: SORE THROAT/FEVER/BACK PAIN Other details as noted in HPI Constitutional: chills, fever (subjective) Eyes: denies: eye pain, vision change ENT: throat pain. denies: ear pain Respiratory: cough. denies: shortness of breath Cardiovascular: denies: chest pain, palpitations Gastrointestinal: denies: abdominal pain, vomiting Genitourinary: denies: dysuria, discharge Musculoskeletal: myalgia. denies: joint swelling Skin: denies: rash, lesions Neurological: denies: headache, weakness Physical Exam - Physical Exam Vital Signs: Vital Signs 07/06/19 09:50 Temperature 98.3 F Pulse Rate 76 Respiratory 16 Rate Blood Pressure 102/56 O2 Sat by Pulse 100 Oximetry Physical Exam: GENERAL: The patient is well-developed well-nourished. HENT: Normocephalic. Atraumatic. Patient has moist mucous membranes. Oropharynx is clear. No tonsillar hypertrophy, erythema or exudates. No drooling or trismus. EYES: Extraocular motions are intact. Pupils equal reactive to light bilaterally. NECK: Supple. Trachea is midline. CHEST/LUNGS: Clear to auscultation. There is no respiratory distress noted. HEART/CARDIOVASCULAR: Regular. There is no tachycardia. There is no murmur. ABDOMEN: Abdomen is soft, nontender. Patient has normal bowel sounds. SKIN: Skin is warm and dry. NEURO: The patient is awake, alert, and oriented. The patient is cooperative. The patient has no focal neurologic deficits. The patient has normal speech. MUSCULOSKELETAL: There is no tenderness or deformity. There is no evidence of acute injury. ED Course Vital Signs 07/06/19 09:50 Temperature 98.3 F Pulse Rate 76 Respiratory 16 Rate Blood Pressure 102/56 O2 Sat by Pulse 100 Oximetry ED Medical Decision Making - Medical Decision Making This patient presents to the emergency department with a 2 week history of some intermittent subjective fever, sore throat, intermittent cough and the patient is by about 3 months. On examination the patient does not appear to have any signs of any respiratory or acute distress. Oropharynx is clear. No cough was heard during examination. A rapid strep test was done and resulted as negative. Since the patient does not have any chest pain, does not appear to have any shortness of breath or respiratory distress, and since there was no significant cough heard, and since the patient is , no chest x-ray was done at this time. I also did not feel that it was necessary to do an ultrasound for evaluation of her as she has no complaints of any abdominal pain, low back pain, vaginal bleeding, pelvic pain, or any other significant related complaints. This all appears most consistent with a viral upper respiratory infection. She has been instructed to follow up with her [facility] and has been given referrals for local primary care physicians. She will return to the ER with any worsening of her symptoms or any acute distress. - Differential Diagnosis viral URI, pneumonia, influenza, strep pharyngitis, viral pharyngitis Critical Care Time: No Critical care attestation.: If time is entered above; I have spent that time in minutes in the direct care of this critically ill patient, excluding procedure time. ED Disposition Clinical Impression: Cough Pharyngitis Qualifiers: Pharyngitis/tonsillitis etiology: unspecified etiology Qualified Code(s): J02.9 - Acute pharyngitis, unspecified Upper respiratory infection Qualifiers: URI type: unspecified viral URI Qualified Code(s): J06.9 - Acute upper respiratory infection, unspecified Disposition: DC- TO HOME OR SELFCARE Is pt being admited?: No Condition: Stable Instructions: Pharyngitis (ED), Upper Respiratory Infection (ED), Viral Syndrome (ED) Additional Instructions: Please follow-up with your [facility] as previously scheduled or as needed. I am giving you a referral for some local primary care physicians and clinics. You can continue to take Tylenol, using the dosing on the back of the bottle, as needed for any fever or discomfort. Return to the emergency Department with any worsening of your symptoms or any acute distress. Referrals: KOREY SEYMOUR MD [Staff Physician] - 2-3 Days [facility] [Outside] - 2-3 Days Time of Disposition: 11:59 Print Language: ICELANDIC
[2019-07-06 12:28] VITALS: BP 96/58
== END 2019-07-06 12:29 | disposition home or self-care (01) ==
LOC: ED 09:39
DX: O99.511 Diseases of the respiratory system complicating pregnancy, first trimester (principal); J02.9 Acute pharyngitis, unspecified; J06.9 Acute upper respiratory infection, unspecified; O24.419 Gestational diabetes mellitus in pregnancy, unspecified control; Z79.1 Long term (current) use of non-steroidal anti-inflammatories (NSAID); Z79.899 Other long term (current) drug therapy; Z3A.12 12 weeks gestation of pregnancy
CPT/HCPCS: 87116; 87430; 99283

== ENCOUNTER 2020-01-11 14:22 | Inpatient (IN) | payer OTHER ==
[2020-01-11] MEDS ORDERED: AMPICILLIN/NS 2 GM/100 ML 2 GM/100 ML BAG IV ONE (19:54)
[2020-01-11] MEDS ORDERED: ePHEDrine SULFATE 50 MG/1 ML INJ IV PRN (19:54)
[2020-01-11] MEDS ORDERED: fentaNYL 100 MCG/2 ML INJ IV PRN (19:54)
[2020-01-11] MEDS ORDERED: TERBUTALINE 1 MG/1 ML INJ SUB-Q PRN (19:54)
[2020-01-11] MEDS ORDERED: OXYTOCIN 20 UNIT/1000ML DRIP 20 UNITS/1,000 ML BAG IV SCH (20:00)
[2020-01-11] MEDS ORDERED: OXYTOCIN DRIP 30 UNITS/500 ML BAG IV SCH (20:00)
--- NOTE | 2020-01-11 20:15 | History and Physical Report ---
History of Present Illness Date of examination: 01/11/20 Date of admission: 01/11/2020 Chief complaint: Contractions History of present illness: 25 year old female presents to L&D with complaint of contractions. Patient reports decreased movement beginning yesterday. Patient denies leaking of fluid. Patient received care at [facility] and records are available. LMP 02/2019. EDC 01/11/2020 based on an US done at 8 weeks, 3 days gestation. significant for the following: GBS positive (GBS bacteriuria), elevated 1 hour sugar test (followed by normal 3 hour OGTT), GDM with her previous . labs are as follows: O+, antibody screen negative, rubella immune, hepatitis B surface antigen negative, HIV negative, RPR nonreactive, chlamydia negative, gonorrhea negative, quad screen negative, 1 hour sugar test 142 (followed by normal 3 hour OGTT), GBS positive. Past History Past Medical History: other (history of GDM with a previous ) Past Surgical History: no surgical history RESAWYER History: other (arcuate uterus). denies: chlamydia, gonorrhea, hepatitis B, hepatitis C, herpes, HIV, syphilis, trichomonas Family/Genetic History: diabetes, hypertension, Down's syndrome (cousin with Down syndrome) Social history: , lives with family, full code. denies: smoking, alcohol abuse, prescription drug abuse, IV drug use - Obstetrical History Expected Date of Delivery: 01/11/20 Actual Gestation: 40 Week(s) 0 Day(s) : 2 Para: 1 Hx # Term Pregnancies: 1 Number of Pregnancies: 0 Spontaneous Abortions: 0 Induced : 0 Number of Living Children: 1 Medications and Allergies Allergies Allergy/AdvReac Type Severity Reaction Status Date / Time No Known Allergies Allergy Verified 07/06/19 09:41 Home Medications Medication Instructions Recorded Confirmed Last Taken Type HYDROcodone/APAP 5-325 [[place] 1 each PO Q6HR PRN #7 tablet 11/14/17 Unknown Rx 5/325] Ibuprofen [Motrin 600 MG tab] 600 mg PO Q8H PRN #30 tablet 11/14/17 Unknown Rx Multivitamin with Iron 1 each PO DAILY #30 tablet 11/14/17 Unknown Rx [Multivitamins with Iron] Active Meds: Active Medications Ephedrine Sulfate (Ephedrine Sulfate) 10 mg IV Q2M PRN PRN Reason: Hypotension Fentanyl (Sublimaze) 100 mcg IV Q2H PRN PRN Reason: Labor Pain Oxytocin/Sodium Chloride (Pitocin/Ns 20 Unit/1000ml Drip) 20 units in 1,000 mls @ 125 mls/hr IV DIRECT CHRISTINA Oxytocin/Sodium Chloride (Pitocin/Ns 30 Unit/500ml) 30 units in 500 mls @ 0 mls/hr IV TITR CHRISTINA; Protocol Lactated Ringer's (Lactated Ringers) 1,000 mls @ 125 mls/hr IV DIRECT CHRISTINA Ampicillin Sodium (Ampicillin/Ns 2 Gm/100 Ml) 2 gm in 100 mls @ 100 mls/hr IV ONCE ONE; Protocol Stop: 01/11/20 20:53 Ampicillin Sodium (Ampicillin/Ns 1 Gm/50 Ml) 1 gm in 50 mls @ 100 mls/hr IV Q4HR CHRISTINA; Protocol Terbutaline Sulfate (Brethine) 0.25 mg SUB-Q ONCE PRN PRN Reason: Hyperstimulation/Hypertonicity Review of Systems All systems: negative (contractions, decreased movement) - Vital Signs Vital signs: Vital Signs Pulse Pulse Ox 80 99 01/11/20 14:31 01/11/20 14:31 Temp Pulse Resp BP Pulse Ox 92 H 111/66 99 01/11/20 19:46 01/11/20 18:21 01/11/20 19:46 - Physical Exam Abdomen: Positive: normal appearance, soft. Negative: distention, tenderness, guarding, rigidity Genitourinary (Female): Positive: normal external genitalia, normal perenium. Negative: perineal/vulvar lesions (no lesions seen on careful exam with bright light upon admission) Vagina: Positive: normal moisture Uterus: Positive: enlarged (S=D). Negative: tender Anus/Rectum: Positive: normal perianal skin Extremities: Positive: normal. Negative: tenderness - Obstetrical FHR: category 2 (several variable FHR decelerations noted with rapid return to baseline; normal baseline rate, moderate variability, and accelerations noted) Uterine Contraction Monitor Mode: External Cervical Dilatation: 3 Cervical Effacement Percentage: 70 station: -2 Uterine Contraction Pattern: Irregular Uterine Contraction Intensity: Moderate Results All other labs normal. Assessment and Plan A: at 40 weeks gestation. Early labor. Decreased movement. Category 2 heart rate tracing. GBS positive. P: Admit. Continuous EFM. GBS prophylaxis. Pitocin augmentation of labor. Discussed with patient risks and benefits of Pitocin augmentation of labor. Patient consented to Pitocin augmentation of labor.
[2020-01-11] MEDS: LACTATED RINGERS 1,000 ML IV SCH ×2 (21:16→23:47)
[2020-01-11 21:34] LABS: Hematocrit 37.5 % (30.3-42.9); Hemoglobin 12.8 gm/dl (10.1-14.3); Mean Corpuscular HGB Conc 34 % (30-34); Mean Corpuscular Volume 89 fl (79-97); Platelet Count 143 K/mm3 (140-440); Red Blood Count 4.22 M/mm3 (3.65-5.03); Red Cell Distribution Width 13.7 % (13.2-15.2)
[2020-01-11] MEDS ORDERED: FLU VACC QUAD 2019-20 (3 YR UP)/PF 60 MCG/0.5 ML SYRINGE IM ONE (21:45)
[2020-01-12] MEDS ORDERED: AMPICILLIN/NS 1 GM/50 ML 1 GM/50 ML BAG IV SCH (00:02)
[2020-01-12] MEDS ORDERED: NALOXONE 2 MG/2 ML INJ IV PRN (01:33)
[2020-01-12] MEDS ORDERED: ePHEDrine SULFATE 50 MG/1 ML INJ IV PRN (01:33)
--- NOTE | 2020-01-12 01:52 | Anesthesia Consultation ---
Anesthesia Consult and Med Hx Date of service: 01/12/20 - Airway Anesthetic Teeth Evaluation: Good, Partials ROM Head & Neck: Adequate Mental/Hyoid Distance: Adequate Mallampati Class: Class II Intubation Access Assessment: Probably Good - Pulmonary Exam CTA: Yes - Cardiac Exam Cardiac Exam: RRR - Pre-Operative Health Status ASA Pre-Surgery Classification: ASA2 Proposed Anesthetic Plan: Epidural - Pulmonary Hx Smoking: No Hx Asthma: No Hx Respiratory Symptoms: No SOB: No COPD: No Home Oxygen Therapy: No Hx Pneumonia: No Hx Sleep Apnea: No - Cardiovascular System Hx Hypertension: No Hx Coronary Artery Disease: No Hx Heart Attack/AMI: No Hx Angina: No Hx Percutaneous Transluminal Coronary Angioplasty (PTCA): No Hx Cardia Arrhythmia: No Hx Pacemaker: No Hx Internal Defibrillator: No Hx Valvular Heart Disease: No Hx Heart Murmur: No Hx Peripheral Vascular Disease: No - Central Nervous System Hx Neuromuscular Disorder: No Hx Seizures: No CVA: No Hx Back Pain: Yes (scoliosis) Hx Psychiatric Problems: No - Gastrointestinal Hx Ulcer: No Hx Gastroesophageal Reflux Disease: Yes - Endocrine Hx Renal Disease: No Hx End Stage Renal Disease: No Hx Cirrhosis: No Hx Liver Disease: No Hx Insulin Dependent Diabetes: No Hx Non-Insulin Dependent Diabetes: No Hx Thyroid Disease: No Hx Hypothyroidism: No Hx Hyperthyroidism: No - Hematic Hx Anemia: No Hx Sickle Cell Disease: No - Other Systems Hx Alcohol Use: No Hx Substance Use: No Hx Cancer: No Hx Obesity: No
[2020-01-12] MEDS ORDERED: fentaNYL-BUPIV 2 MCG/ML-0.125% 200 MCG/100 ML BAG EPIDURAL SCH (02:00)
[2020-01-12] MEDS ORDERED: OXYTOCIN 10 UNIT/1 ML INJ ONE (03:09)
[2020-01-12] MEDS ORDERED: OXYTOCIN 10 UNIT/1 ML INJ IM ONE (03:32)
[2020-01-12] MEDS ORDERED: miSOPROStol 100 MCG TAB ONE (03:35)
[2020-01-12] MEDS ORDERED: miSOPROStol 200 MCG TAB PR ONE (03:36)
[2020-01-12] MEDS ORDERED: WITCH HAZEL/ GLYCERIN PAD TP PRN (03:56)
--- NOTE | 2020-01-12 04:13 | Procedure Note ---
OB Delivery Note - Delivery Date of Delivery: 01/12/20 Surgeon: EMA CHACON Estimated blood loss: 300cc - Vaginal Delivery presentation: vertex Delivery position: OA Intrapartum events: shoulder dystocia Delivery induction: none Delivery augmentation: pitocin Delivery monitor: external FHT, external uterine Route of delivery: Delivery placenta: spontaneous Delivery cord: 3 umbilical vessels, other (body cord) Episiotomy: none Delivery laceration: none Anesthesia: epidural Delivery comments: Spontaneous vaginal delivery at 03:27 of liveborn female weighing 8 lb. 8 oz. over intact perineum with apgars 8/9. Meconium stained amniotic fluid and NICU present for delivery. Left anterior shoulder snug, resolved by delivery of posterior arm. Spontaneous cry and respirations. 3 vessel cord double clamped and cut and baby taken to radiant warmer for suctioning and evaluation. Cord blood obtained. Spontaneous delivery of intact placenta and membranes. EBL 300 cc. IV had infiltrated so IM Pitocin given after delivery of placenta. Cytotec 800 mcg also given rectally. No lacerations noted. Vaginal sweep negative. Sponge count and instrument count correct. Mother and baby stable. Baby moving all extremities well.
[2020-01-12] MEDS: IBUPROFEN 600 MG TAB PO SCH ×3 (05:47→23:52)
--- NOTE | 2020-01-12 08:02 | Post Anesthesia Evaluation ---
- Post Anesthesia Evaluation Patient Participated: Yes Airway Patent: Yes Stable Respiratory Function: Yes Nausea/Vomiting: No Temp > 96.8F: Yes Pain Manageable: Yes Adequeate Hydration: Yes Anesthesia Complications: No Block Receding Appropriately: Yes Patient on Ventilator: No
[2020-01-12] MEDS: HYDROcodone/ACETAMINOPHEN 5-325 MG TAB PO PRN ×2 (09:07→17:39)
[2020-01-12] MEDS: DOCUSATE SODIUM 100 MG CAP PO SCH ×2 (09:07→23:52)
[2020-01-12 20:01] LABS: Hematocrit 31.5 % (30.3-42.9); Hemoglobin 10.7 gm/dl (10.1-14.3)
[2020-01-13] MEDS ORDERED: TETANUS,DIPH,PERTUSS(ACELL) VACCINE 0.5 ML SYRINGE IM ONE (06:00)
[2020-01-13] MEDS: IBUPROFEN 600 MG TAB PO SCH ×3 (06:16→22:00)
[2020-01-13] MEDS ORDERED: LANOLIN/ZINC/DIMETHICONE (LANSINOH) 7 GM TP PRN (10:34)
[2020-01-13] MEDS: FERROUS SULFATE 325 MG TAB PO SCH ×2 (11:08→22:29)
[2020-01-13] MEDS: DOCUSATE SODIUM 100 MG CAP PO SCH ×2 (11:08→22:29)
--- NOTE | 2020-01-13 12:31 | Progress Note ---
Assessment and Plan A: day 1 S/P . Anemia. P: Supplemented with iron. Continue current management. Subjective - Subjective Date of service: 01/13/20 Principal diagnosis: day 1 S/P Interval history: day 1 S/P spontaneous vaginal delivery. Doing well. Patient reports small amount of lochia. Voiding without difficulty. Denies pain. Patient reports: appetite normal, voiding normally, pain well controlled, flatus, ambulating normally, no dizzy ambulation, no nauseated [place]: doing well Objective - Vital Signs Latest vital signs: Vital Signs Temp Pulse Resp BP BP Pulse Ox 01/13/20 08:05 97.9 F 67 20 99/55 01/13/20 07:07 18 01/13/20 06:16 18 01/13/20 00:52 18 01/13/20 00:01 98.0 F 83 18 95/59 97 01/12/20 23:52 18 01/12/20 18:39 18 01/12/20 15:50 98.5 F 80 20 114/73 Intake and Output 01/12/20 01/13/20 01/13/20 23:59 07:59 15:59 Intake Total 240 600 240 Balance 240 600 240 Intake: Oral 240 Intake, Free Water 240 600 Other: Total, Intake Amount 240 # Voids Void 1 2 - Exam Cardiovascular: Present: Regular rate, Normal S1, Normal S2 Lungs: Present: Clear to auscultation Abdomen: Present: normal appearance, soft. Absent: distention, tenderness, guarding, rigidity Uterus: Present: normal, firm, fundal height below umbilicus. Absent: bogginess, tenderness Extremities: Present: normal. Absent: tenderness
[2020-01-14] MEDS: IBUPROFEN 600 MG TAB PO SCH ×2 (05:31→09:59)
[2020-01-14] MEDS: DOCUSATE SODIUM 100 MG CAP PO SCH (09:59)
[2020-01-14] MEDS: FERROUS SULFATE 325 MG TAB PO SCH (09:59)
--- NOTE | 2020-01-14 11:11 | Progress Note ---
Assessment and Plan A: PP Day #1 Stable P: Follow Routine Orders Depo Provera 150mg IM prior to discharge D/C Home today RTO in 6 Weeks Subjective - Subjective Date of service: 01/14/20 Principal diagnosis: day 1 S/P Patient reports: appetite normal, voiding normally, pain well controlled, flatus, ambulating normally : doing well, bottle feeding Objective - Vital Signs Latest vital signs: Vital Signs Temp Pulse Resp BP BP Pulse Ox 01/14/20 08:09 97.7 F 70 20 98/57 97 01/14/20 06:31 18 01/14/20 05:31 18 01/13/20 23:54 98.2 F 69 20 94/54 98 01/13/20 22:00 18 01/13/20 15:55 98.2 F 89 20 121/72 Intake and Output 01/13/20 01/14/20 01/14/20 22:59 06:59 14:59 Intake Total 480 360 240 Balance 480 360 240 Intake: Oral 240 240 Intake, Free Water 240 360 Other: Total, Intake Amount 240 240 # Voids Void 1 1 1 - Exam Breasts: Present: normal Cardiovascular: Present: Regular rate Lungs: Present: Clear to auscultation, Normal air movement Abdomen: Present: normal appearance, soft, normal bowel sounds Uterus: Present: normal, firm, fundal height below umbilicus Extremities: Present: normal
--- NOTE | 2020-01-14 11:12 | Discharge Summary ---
Providers - Providers Date of Admission: 01/11/20 19:54 Date of discharge: 01/14/20 Attending physician: MUNDO VANEGAS MD Primary care physician: MUNDO VANEGAS MD Hospitalization Reason for admission: active labor Delivery: Episiotomy: none Laceration: none Other procedures: none complications: none Discharge diagnosis: IUP at term delivered baby: female Condition at discharge: Good Disposition: DC-01 TO HOME OR SELFCARE Plan - Provider Discharge Summary Activity: routine, no sex for 6 weeks, no heavy lifting 4 weeks, no strenuous exercise Diet: routine Instructions: routine Additional instructions: [] Smoking cessation referral if applicable(refer to patient education folder for contact #) [] Refer to [facility]'s [facility] Booklet Call your doctor immediately for: * Fever > 100.5 * Heavy vaginal bleeding ( >1 pad per hour) * Severe persistent headache * Shortness of breath * Reddened, hot, painful area to leg or breast * Drainage or odor from incision. * Keep incision clean and dry at all times and follow doctor's instructions regarding bathing/showering - Follow up plan Follow up: MUNDO VANEGAS MD [Primary Care Provider] - 6 Weeks
[2020-01-14] MEDS ORDERED: medroxyPROGESTERone ACETATE 150 MG/ML SYRINGE IM ONE (11:15)
[2020-01-14 14:39] VITALS: BP 99/68
== END 2020-01-14 14:45 | disposition home or self-care (01) | DRG 807 ==
LOC: TRG 14:22 → LD 19:50 → TRG 19:54 → LD 19:54 → OB 01-12 05:32
PROVIDERS: ADMIT Obstetrics & Gynecology; ATTEND Obstetrics & Gynecology
PROC: 10E0XZZ Delivery of Products of Conception, External Approach (ICD-10-PCS; principal; 2020-01-12)
PROC: 3E0R3BZ Introduction of Anesthetic Agent into Spinal Canal, Percutaneous Approach (ICD-10-PCS; 2020-01-12)
PROC: 00HU33Z Insertion of Infusion Device into Spinal Canal, Percutaneous Approach (ICD-10-PCS; 2020-01-12)
PROC: 3E0234Z Introduction of Serum, Toxoid and Vaccine into Muscle, Percutaneous Approach (ICD-10-PCS; 2020-01-13)
DX: O99.824 Streptococcus B carrier state complicating childbirth (principal); Z37.0 Single live birth; O66.0 Obstructed labor due to shoulder dystocia; O99.02 Anemia complicating childbirth; O69.89X0 Labor and delivery complicated by other cord complications, not applicable or unspecified; O99.62 Diseases of the digestive system complicating childbirth; K21.9 Gastro-esophageal reflux disease without esophagitis; Z82.49 Family history of ischemic heart disease and other diseases of the circulatory system; Z3A.40 40 weeks gestation of pregnancy; Z83.3 Family history of diabetes mellitus; Z79.899 Other long term (current) drug therapy
CPT/HCPCS: 36415; 85014; 85018; 85027; 86592; 86850; 86900; 86901; 90471; 90686; 90715; G0378; J0290; J2590; J7120